=== PATIENT | female | born 1960 | race African-American/Black ===

== ENCOUNTER 2019-01-20 08:40 | Emergency (ER) | payer OTHER ==
[2019-01-20] MEDS ORDERED: SUBLIMAZE IV ONE (08:57)
[2019-01-20] MEDS ORDERED: ZOFRAN IV ONE (08:57)
[2019-01-20] MEDS ORDERED: TORADOL IV ONE (08:57)
--- NOTE | 2019-01-20 08:57 | Emergency Department Report ---
HPI - General Chief Complaint: Abdominal Pain Time Seen by Provider: 01/20/19 08:49 - HPI HPI: Room 20 The patient is a 58-year-old female presenting with chief complaint of left flank pain. Patient states this morning at 07:30 she was awakened by pain in the left lower quadrant/left flank. He states patient was diaphoretic. Patient denies nausea vomiting, dysuria or hematuria. Patient gives her pain a score of 10/10 Location: Left flank Duration: Constant since 07:30 Quality: Pain Severity: 10/10 Modifying factors: [see above] Context: [see above] Mode of transportation: [not driving] ED Past Medical Hx - Past Medical History Previous Medical History?: No - Surgical History Past Surgical History?: No - Family History Family history: no significant - Social History Smoking Status: Never Smoker Substance Use Type: None - Medications Home Medications: Home Medications Medication Instructions Recorded Confirmed Last Taken Type Ketorolac [Toradol] 10 mg PO Q6H PRN #16 tablet 01/20/19 Unknown Rx Ondansetron [Zofran ODT TAB] 8 mg PO Q8HR #20 tab.rapdis 01/20/19 Unknown Rx oxyCODONE /ACETAMINOPHEN [Percocet 1 - 2 tab PO Q6HR PRN #20 tablet 01/20/19 Unknown Rx 5/325] ED Review of Systems ROS: Stated complaint: ABD PAIN Other details as noted in HPI Constitutional: no symptoms reported Eyes: denies: eye pain ENT: denies: throat pain Respiratory: no symptoms reported Cardiovascular: denies: chest pain Endocrine: no symptoms reported Gastrointestinal: abdominal pain. denies: nausea, vomiting Genitourinary: denies: dysuria, hematuria Musculoskeletal: denies: back pain Neurological: denies: headache Physical Exam - Physical Exam Vital Signs: Vital Signs 01/20/19 08:48 Temperature 97.6 F Pulse Rate 68 Respiratory 26 H Rate Blood Pressure 136/73 [Left] O2 Sat by Pulse 100 Oximetry Physical Exam: GENERAL: The patient is well-developed well-nourished female lying on stretcher appearing to be in moderate discomfort. [] HEENT: Normocephalic. Atraumatic. Extraocular motions are intact. Patient has moist mucous membranes. NECK: Supple. Trachea midline CHEST/LUNGS: Clear to auscultation. There is no respiratory distress noted. HEART/CARDIOVASCULAR: Regular. There is no tachycardia. There is no gallop rub or murmur. ABDOMEN: Abdomen is soft, nontender. Patient has normal bowel sounds. There is no abdominal distention. SKIN: There is no rash. There is no edema. There is no diaphoresis. NEURO: The patient is awake, alert, and oriented. The patient is cooperative. The patient appears anxious MUSCULOSKELETAL: There is no evidence of acute injury. ED Course Vital Signs 01/20/19 08:48 Temperature 97.6 F Pulse Rate 68 Respiratory 26 H Rate Blood Pressure 136/73 [Left] O2 Sat by Pulse 100 Oximetry ED Medical Decision Making - Lab Data Result diagrams: 01/20/19 08:54 01/20/19 08:54 - Radiology Data Radiology results: report reviewed (CT abdomen and pelvis), image reviewed (CT abdomen and pelvis) [facility] [address] [place] [address] Cat Scan Report Signed Patient: VANDANA DUGAN MR#: [id number] 23 : 1960 Acct:[id number] Age/Sex: 58 / F ADM Date: 01/20/19 Loc: ED Attending Dr: Ordering Physician: ANTONY ANDERS MD Date of Service: 01/20/19 Procedure(s): CT abdomen wo con Accession Number(s): [id number] cc: ANTONY ANDERS MD CT ABDOMEN PELVIS WITHOUT CONTRAST: HISTORY: Left flank pain. COMPARISON: none. TECHNIQUE: Helical CT in 1.25mm intervals without IV contrast. Sagittal and coronal reconstructions. FINDINGS: Lung bases: Normal. Liver: Mild diffuse fatty infiltration. No enlargement are obvious mass. 1 cm cyst is noted in the left hepatic lobe. Biliary system: Normal. Pancreas: Normal. Spleen: Normal. Kidneys/ureters/bladder: A 3 mm calculus is identified in the distal left ureter resulting in mild left hydronephrosis. 2 punctate left renal calyceal stones are identified at the superior and inferior poles. No obvious right nephrolith iasis. The bladder is unremarkable. Adrenal glands: Normal. Aorta: Normal. Intestines: Normal. Appendix: Normal. Pelvic viscera: Normal. Ascites: None. Adenopathy: None. Musculoskeletal: Intact. IMPRESSION: 3 mm distal left ureteral stone, mildly obstructing. Punctate left renal calyceal stones. Transcribed By: TTR Dictated By: HEATHER JULIEN JR, MD Electronically Authenticated By: HEATHER JULIEN JR, MD Signed Date/Time: 01/20/19933 DD/ 0 TD/TT: 01/20/19933 - Differential Diagnosis renal colic, diverticulitis, Critical care attestation.: If time is entered above; I have spent that time in minutes in the direct care of this critically ill patient, excluding procedure time. ED Disposition Clinical Impression: Renal colic on left side, Acute left flank pain Disposition: TO HOME OR SELFCARE Is pt being admited?: No Does the pt Need Aspirin: No Condition: Stable Instructions: Abdominal Pain (ED) Additional Instructions: Return to the emergency department immediately should you develop worsening symptoms, fever, inability to tolerate food or liquid or any other concerns. Prescriptions: oxyCODONE /ACETAMINOPHEN [Percocet 5/325] 1 - 2 tab PO Q6HR PRN #20 tablet PRN Reason: Pain Ketorolac [Toradol] 10 mg PO Q6H PRN #16 tablet PRN Reason: Pain Ondansetron [Zofran ODT TAB] 8 mg PO Q8HR #20 tab.rapdis Referrals: MARIA R BRADLEY MD [Staff Physician] - 2-3 Days (Dr. Bradley is a urologist. Please follow him for further evaluation) Time of Disposition: 10:40
[2019-01-20] MEDS ORDERED: TORADOL ONE (08:58)
[2019-01-20] MEDS ORDERED: ZOFRAN ONE (08:58)
[2019-01-20] MEDS ORDERED: SUBLIMAZE ONE (08:59)
[2019-01-20 09:19] LABS: Hemoglobin 14.3 gm/dl (10.1-14.3); Mean Corpuscular HGB Conc 34 % (30-34); Mean Corpuscular Volume 88 fl (79-97); Red Blood Count 4.75 M/mm3 (3.65-5.03)
[2019-01-20 09:20] LABS: Basophils # (Auto) 0.1 K/mm3 (0.0-0.1); Basophils % (Auto) 0.6 % (0.0-1.8); Eosinophils # (Auto) 0.3 K/mm3 (0.0-0.4); Lymphocytes # (Auto) 3.9 K/mm3 (1.2-5.4); Lymphocytes % (Auto) 35.5 % (13.4-35.0); Monocytes # (Auto) 1.1 K/mm3 (0.0-0.8); Monocytes % (Auto) 9.7 % (0.0-7.3); Platelet Count 331 K/mm3 (140-440); Red Cell Distribution Width 12.6 % (13.2-15.2)
--- NOTE | 2019-01-20 09:39 | Cat Scan Report ---
CT ABDOMEN PELVIS WITHOUT CONTRAST: HISTORY: Left flank pain. COMPARISON: none. TECHNIQUE: Helical CT in 1.25mm intervals without IV contrast. Sagittal and coronal reconstructions. FINDINGS: Lung bases: Normal. Liver: Mild diffuse fatty infiltration. No enlargement are obvious mass. 1 cm cyst is noted in the left hepatic lobe. Biliary system: Normal. Pancreas: Normal. Spleen: Normal. Kidneys/ureters/bladder: A 3 mm calculus is identified in the distal left ureter resulting in mild left hydronephrosis. 2 punctate left renal calyceal stones are identified at the superior and inferior poles. No obvious right nephrolithiasis. The bladder is unremarkable. Adrenal glands: Normal. Aorta: Normal. Intestines: Normal. Appendix: Normal. Pelvic viscera: Normal. Ascites: None. Adenopathy: None. Musculoskeletal: Intact. IMPRESSION: 3 mm distal left ureteral stone, mildly obstructing. Punctate left renal calyceal stones.
[2019-01-20 09:44] LABS: Bilirubin,Urine NEG (Negative); Blood,Urine MOD (Negative); Color,Urine Yellow (Yellow); Mucus,Urine 1+ /HPF; Protein,Urine <15 mg/dL mg/dL (Negative); Urobilinogen,Urine < 2.0 mg/dL (<2.0)
[2019-01-20 10:01] LABS: Alanine Aminotransferase 25 units/L (7-56); BUN/Creatinine Ratio 25; Blood Urea Nitrogen 15 mg/dL (7-17); Calcium 8.8 mg/dL (8.4-10.2); Hemolysis Index 6
[2019-01-20] MEDS ORDERED: DILAUDID IV ONE (10:21)
[2019-01-20 10:33] VITALS: BP 138/76
== END 2019-01-20 10:50 | disposition home or self-care (01) ==
LOC: ED 08:40
DX: N23 Unspecified renal colic (principal)
CPT/HCPCS: 36415; 74150; 80053; 81001; 82962; 83690; 85025; 96374; 96375; 99284; J1170; J1885; J2405; J3010